=== PATIENT | male | born 1970 | race Caucasian/White ===

== ENCOUNTER 2024-08-29 06:35 | Day surgery (SDC) | payer OTHER ==
[2024-08-19 08:44] VITALS: BP 124/75
[~2024-08-29] VITALS: Ht 175.3 cm; Wt 108.2 kg
[~2024-08-29 06:35] MED LIST: BUSPIRONE HCL15 MG PO; COZAAR100 MG PO; HYDROCHLOROTHIA25 MG PO; LACTATED RINGER'S 1,000 ML IV SCH; NAPROXEN250 MG PO; OMEPRAZOLE20 M1 PO
[2024-08-29 06:55] VITALS: BP 152/102
[2024-08-29] MEDS ORDERED: LIDOCAINE HCL 1% 5 ML SDV INJ ONE (07:00)
[2024-08-29] MEDS ORDERED: IBLOOD GLUCOSE TEST STRIP 1 EA TEST VI PRN (07:00)
[2024-08-29 07:21] VITALS: BP 151/99
--- NOTE | 2024-08-29 07:30 | NUR ---
PT NOT AVAILABLE FOR VISIT. PROVIDED PRAYER.
[2024-08-29] MEDS ORDERED: KETAMINE in NS 50 MG/5 ML SYR ONE (08:37)
[2024-08-29] MEDS ORDERED: propofoL 200 MG/20 ML VIAL ONE (08:37)
[2024-08-29] MEDS ORDERED: LIDOCAINE HCL 2% 5 ML SDV ONE (08:37)
--- NOTE | 2024-08-29 09:16 | NUR ---
08/29/24 0916 Ava Solis 0958-PATIENT ARRIVED TO PACU ON 6L MASK NONAROUSABLE 100% RR EVEN. SNORING. ABDOMEN SOFT. IVF INFUSING. SR HR 70'S.
[2024-08-29 09:51] VITALS: BP 141/102
--- NOTE | 2024-08-29 10:01 | OR ---
[facility] [address], [place] [address] Signed DATE OF OPERATION: 08/29/2024 SURGEON: Jacquelin Phelps MD PREOPERATIVE DIAGNOSIS: Screening. POSTOPERATIVE DIAGNOSES: 1. Minimal internal hemorrhoids. 2. 4 mm polyp at 110 cm in transverse colon. 3. 4 mm polyp at 40 cm in left colon. 4. 4 mm polyp at 18 cm in rectum. PROCEDURE: Colonoscopy with hot biopsy. ESTIMATED BLOOD LOSS: None. INDICATIONS: Justina is a 53-year-old gentleman, asked to see me for his initial screening colonoscopy. He had gone to establish with his primary care provider after coming out of [facility] for 27 years. He said he has no lower GI complaints. There is no family history of colon cancer or polyps. He does like to use marijuana every night to help him sleep. He also has a full round face as well. Consequently, used monitored anesthesia care propofol infusion per our nurse operations administrative assistant. That worked out well today as he did need quite a bit of propofol. In the office, I gave him a pamphlet on colonoscopy. We had reviewed the nature of the test. There is risk including, but not limited to gas bloating, crampy abdominal pain, bleeding, perforation requiring surgery, and missed diagnosis. We also reviewed the written instructions for the bowel prep line by line. He understands an adult person has to take him home afterwards. He had expressed understanding and wished to proceed. DESCRIPTION OF PROCEDURE: Justina was taken into our endoscopy suite and placed in the left lateral decubitus position. He was given monitored anesthesia care with propofol infusion per our nurse operations administrative assistant. A digital rectal exam was performed. This was unremarkable. He had good sphincter tone. No external hemorrhoids. No masses. The adult colonoscope was introduced and advanced all the way around into the cecum under direct visualization of camera without difficulty. His prep was quite good. We could easily see the Electronically Signed By: JACQUELIN PHELPS MD 08/29/24 1001 PATIENT NAME: JUSTINA BENNETT OPERATIVE REPORT DATE OF : 68 REPORT #: [id number] PHYSICIAN: JACQUELIN PHELPS MD PCP: ROBIN GRIFFITH PA-C REPORT IS CONFIDENTIAL AND NOT TO BE RELEASED WITHOUT AUTHORIZATION [facility] [address], [place] [address] Signed appendiceal orifice and ileocecal valve. The scope was then slowly withdrawn. The three small polyps mentioned above were easily removed with the help of hot biopsy forceps. The scope was then retroflexed in the rectum and there was just a little bit of internal hemorrhoid columns. After this, the gas was suctioned out, colonoscope removed. Justina tolerated the procedure quite well. RECOMMENDATIONS: Justina can follow up in 7 to 14 days in my office to review his biopsy results. Jacquelin Phelps MD ALB/MILADISL /[id number] cc: MD Robin Grady Copies: JACQUELIN PHELPS MD ~ Electronically Signed By: JACQUELIN PHELPS MD 08/29/24 1001 PATIENT NAME: JUSTINA BENNETT AUDREY OPERATIVE REPORT DATE OF : 68 REPORT #: [id number] PHYSICIAN: JACQUELIN PHELPS MD PCP: ROBIN GRIFFITH PA-C REPORT IS CONFIDENTIAL AND NOT TO BE RELEASED WITHOUT AUTHORIZATION
--- NOTE | 2024-09-02 14:31 | PATH ---
[facility] [address], [place] [address] Signed SPECIMEN(S): A TRANSVERSE COLON POLYP AT 110 CM SPECIMEN(S): B DESCENDING COLON POLYP AT 48 CM SPECIMEN(S): C RECTAL POLYP AT 18 CM SPECIMEN SOURCE: A. TRANSVERSE COLON POLYP AT 110 CM B. DESCENDING COLON POLYP AT 48 CM C. RECTAL POLYP AT 18 CM CLINICAL HISTORY: Initial screening colonoscopy, minimum internal hemorrhoids, polyp FINAL PATHOLOGIC DIAGNOSIS: A. Colon, transverse at 110 cm, polypectomy: - Tubular adenoma B. Colon, descending at 48 cm, polypectomy: - Colonic mucosa with no significant pathologic changes C. Rectum, 18 cm, polypectomy: - Colonic mucosa with no significant pathologic changes BRP MICROSCOPIC EXAMINATION: Histologic sections of all submitted blocks are examined by light microscopy. These findings, together with the gross examination, support the pathologic diagnosis. GROSS DESCRIPTION: A. The specimen, labeled and designated "Kappers, transverse colon polyp at 110 cm," is received in formalin and consists of one pearl soft tissue fragment, 0.3 cm. Entirely submitted in (A1). B. The specimen, labeled and designated "Kappers, descending colon polyp at 48 cm," is received in formalin and consists of one pearl soft tissue fragment, 0.2 cm. Entirely submitted in (B1). C. The specimen, labeled and designated "Kappers, rectal polyp at 18 cm," is received in formalin and consists of one pearl soft tissue fragment, 0.2 cm. Entirely submitted in (C1). VB (under the direct supervision of a pathologist) The Gross Description was prepared using a voice recognition system. The report was reviewed for accuracy; however, sound-alike word errors, addition and/or deletions may occur. If there is any question about this report, please contact Client Services. PATIENT NAME: JUSTINA BENNETT PATHOLOGY DATE OF : 68 REPORT #: [id number] PHYSICIAN: [facility] PCP: ROBIN GRIFFITH PA-C REPORT IS CONFIDENTIAL AND NOT TO BE RELEASED WITHOUT AUTHORIZATION [facility] [address], [place] [address] Signed ADDITIONAL NOTES: Immunohistochemical and/or in situ hybridization studies if performed in this case included appropriate positive controls that reacted as expected. This test was developed and its performance characteristics determined by [facility]. It has not been cleared or approved by the U.S. Food and Drug Administration. The FDA has determined that such clearance or approval is not necessary. This test is used for clinical purposes. It should not be regarded as investigational or for research. [facility] is certified under the Clinical Laboratory Improvement Amendments of 1988 (CLIA) as qualified to perform high complexity clinical laboratory testing. PERFORMING LABORATORY: Technical component was performed by [facility], [address] [place] [id number] (CLIA# [id number]). Professional interpretation was performed by [facility], [address] [place] [id number] (CLIA#: [id number]). Diagnostician: Shakeel Moore MD Pathologist Electronically Signed 09/02/2024 Copies: ~ PATIENT NAME: JUSTINA BENNETT PATHOLOGY DATE OF : 68 REPORT #: [id number] PHYSICIAN: [facility] PCP: ROBIN GRIFFITH PA-C REPORT IS CONFIDENTIAL AND NOT TO BE RELEASED WITHOUT AUTHORIZATION
== END 2024-08-29 10:00 | disposition home or self-care (01) ==
LOC: DS 06:35
PROVIDERS: ATTEND Colon & Rectal Surgery
PROC: 0DBL8ZZ Excision of Transverse Colon, Via Natural or Artificial Opening Endoscopic (ICD-10-PCS; 2024-08-29)
PROC: 0DBP8ZZ Excision of Rectum, Via Natural or Artificial Opening Endoscopic (ICD-10-PCS; 2024-08-29)
PROC: 0DBG8ZZ Excision of Left Large Intestine, Via Natural or Artificial Opening Endoscopic (ICD-10-PCS; principal; 2024-08-29 08:10)
DX: Z12.11 Encounter for screening for malignant neoplasm of colon (principal); D12.3 Benign neoplasm of transverse colon; K63.5 Polyp of colon; K62.1 Rectal polyp; K64.8 Other hemorrhoids; I10 Essential (primary) hypertension; G43.909 Migraine, unspecified, not intractable, without status migrainosus; E66.9 Obesity, unspecified; F12.10 Cannabis abuse, uncomplicated; G89.29 Other chronic pain; E78.2 Mixed hyperlipidemia; K21.9 Gastro-esophageal reflux disease without esophagitis; E11.9 Type 2 diabetes mellitus without complications; Z68.33 Body mass index [BMI] 33.0-33.9, adult
CPT/HCPCS: 00811; 88305; J2003; J2704; J3490; J7121